=== PATIENT | female | born 1935 | race Caucasian/White ===

== ENCOUNTER 2016-06-17 08:49 | Emergency (ER) | payer OTHER ==
[~2016-06-17] VITALS: Ht 149.9 cm; Wt 70.3 kg
[2016-06-17] MEDS ORDERED: GABA-586 PO (09:19)
[2016-06-17] MEDS ORDERED: LAMO25TA5 PO (09:19)
[2016-06-17] MEDS ORDERED: METF500T4 PO (09:19)
[2016-06-17] MEDS ORDERED: ALBU2.5V14 NEB (09:19)
[2016-06-17] MEDS ORDERED: FENTANYL PF 100 MCG/2 ML VIAL. IV PRN (09:30)
[2016-06-17] MEDS ORDERED: BUPR150T15 PO (09:32)
[2016-06-17] MEDS ORDERED: AMLO5TAB2 PO (09:32)
[2016-06-17] MEDS ORDERED: POTA10TA10 PO (09:32)
[2016-06-17] MEDS ORDERED: LAMO200T3 PO (09:32)
[2016-06-17] MEDS ORDERED: LOSA50TA6 PO (09:34)
[2016-06-17] MEDS ORDERED: TIOT18CA IH (09:34)
[2016-06-17] MEDS ORDERED: FURO20TA3 PO (09:34)
--- NOTE | 2016-06-17 10:04 | PHYS DOC ---
Past Medical History Past Medical History: Asthma, Bipolar, COPD, Diabetes-Type II, High Cholesterol , Hypertension, TIA, Other Additional Past Medical Histor: neuropathy Past Surgical History: Appendectomy Alcohol Use: Rarely Drug Use: None Adult General Chief Complaint Chief Complaint: RIB PAIN HPI HPI Patient is a 80 year old female who presents with complaint of left-sided rib and back pain. Patient states that she had a maximum fall at home after tripping on a rug in her house. Patient states that she struck her back against the wall. Patient denies falling to the ground and did not experience any loss consciousness. Patient states that she has had worsening pain along her left side since the fall. Patient has been having sharp pain and tightness towards her back which worsens with movement and with deep inspiration. Patient has been using Voltaren and applying heat to the affected area with no relief. Patient rates her pain currently as 10 out of 10. Review of Systems Review of Systems Constitutional: Denies fever or chills [] Eyes: Denies change in visual acuity, redness, or eye pain [] HENT: Denies nasal congestion or sore throat [] Respiratory: Shortness of breath [] Cardiovascular: Denies chest pain or edema [] GI: Denies abdominal pain, nausea, vomiting, bloody stools or diarrhea [] : Denies dysuria or hematuria [] Musculoskeletal: Left-sided back pain [] Integument: Denies rash or skin lesions [] Neurologic: Denies headache, focal weakness or sensory changes [] Current Medications Current Medications Current Medications Medications (Trade) Dose Ordered Sig/[facility] Start Time Stop Time Status Last Admin Dose Admin Fentanyl Citrate (Fentanyl 2ml Vial) 50 mcg PRN Q15MIN PRN 06/17/16 09:30 06/18/16 09:29 06/17/16 10:34 50 MCG Allergies Allergies Allergies Coded Allergies Type Severity Reaction Last Updated Verified No Known Drug Allergies 06/17/16 No Physical Exam Physical Exam Constitutional: Alert, afebrile, appears in moderate discomfort. [] HENT: Normocephalic, atraumatic, bilateral external ears normal, oropharynx moist, no oral exudates, nose normal. [] Eyes: PERRLA, EOMI, conjunctiva normal, no discharge. [] Neck: Normal range of motion, no tenderness, supple, no stridor. [] Cardiovascular:Heart rate regular rhythm, no murmur [] Lungs & Thorax: Bilateral breath sounds clear to auscultation [] Abdomen: Bowel sounds normal, soft, no tenderness, no masses, no pulsatile masses. [] Skin: Warm, dry, no erythema, no rash. [] Back: Left mid and lower thoracic tenderness to palpation, no midline tenderness to palpation, no flank ecchymosis. [] Extremities: No tenderness, no cyanosis, no clubbing, ROM intact, no edema. [] Neurologic: Alert and oriented X 3, normal motor function, normal sensory function, no focal deficits noted. [] Current Patient Data Vital Signs Vital Signs Date Time Temp Pulse Resp B/P Pulse Ox O2 Delivery O2 Flow Rate FiO2 06/17/16 10:34 18 97 Room Air 06/17/16 08:57 98 85 160/98 98.0 Lab Values Laboratory Tests Test 06/17/16 10:30 White Blood Count 6.9x10^3/uL (4.0-11.0) Red Blood Count 4.25x10^6/uL (3.50-5.40) Hemoglobin 13.5g/dL (12.0-15.5) Hematocrit 40.2% (36.0-47.0) Mean Corpuscular Volume 94fL (79-100) Mean Corpuscular Hemoglobin 32pg (25-35) Mean Corpuscular Hemoglobin Concent 34g/dL (31-37) Red Cell Distribution Width 14.6% (11.5-14.5) H Platelet Count 230x10^3/uL (140-400) Neutrophils (%) (Auto) 62% (31-73) Lymphocytes (%) (Auto) 28% (24-48) Monocytes (%) (Auto) 9% (0-9) Eosinophils (%) (Auto) 1% (0-3) Basophils (%) (Auto) 1% (0-3) Neutrophils # (Auto) 4.3x10^3uL (1.8-7.7) Lymphocytes # (Auto) 1.9x10^3/uL (1.0-4.8) Monocytes # (Auto) 0.6x10^3/uL (0.0-1.1) Eosinophils # (Auto) 0.0x10^3/uL (0.0-0.7) Basophils # (Auto) 0.0x10^3/uL (0.0-0.2) Sodium Level 129mmol/L (136-145) L Potassium Level 4.5mmol/L (3.5-5.1) Chloride Level 98mmol/L (98-107) Carbon Dioxide Level 31mmol/L (21-32) Anion Gap 0 (6-14) L Blood Urea Nitrogen 7mg/dL (7-20) Creatinine 0.9mg/dL (0.6-1.0) Estimated GFR (Cockcroft-Gault) 60.4 Glucose Level 91mg/dL (70-99) Calcium Level 9.1mg/dL (8.5-10.1) Laboratory Tests 06/17/16 10:30 Laboratory Tests 06/17/16 10:30 EKG EKG Interpreted by me: Heart rate 92, sinus rhythm, right bundle branch block, no acute ST/T-wave abnormalities present [] Radiology/Procedures Radiology/Procedures [facility] [address] [place] [address] IMAGING REPORT Signed PATIENT: JOSÉ MIGUEL HUGO ACCOUNT: [id number] : 1935 LOCATION: ER AGE: 80 SEX: F EXAM STATUS: REG ER ORD. PHYSICIAN: TIMOTHY RECINOS MD REASON: fall 2 days ago, left-sided rib pain, PAINFUL BREATHING, MID-LOW RIBS PAIN PROCEDURE: RIBS LEFT AND PA CHEST INDICATION: fall 2 days ago, left-sided rib pain, PAINFUL BREATHING, MID-LOW RIBS PAIN COMPARISON: None. IMPRESSION: 4 views of chest and left ribs obtained. Mild linear opacity right lower lung. Likely atelectasis or scarring. No grossly displaced acute appearing left rib fracture. DICTATED and SIGNED BY: DHAVAL GARCIA MD DATE: 06/17/16 1007 CC: TIMOTHY RECINOS MD; SLAVA SIMMS MD ~ [] Course & Med Decision Making Course & Med Decision Making Pertinent Labs and Imaging studies reviewed. (See chart for details) Patient was given fentanyl in the emergency department with improvement in pain. The patient's x-rays were negative for rib fracture. The patient's symptoms appear consistent with back contusion and muscle strain. The patient will be continued on Flexeril at nighttime and hydrocodone during the daytime to help with symptoms. Advised follow-up with patient's primary physician in the next 3-4 days. Advised return to the emergency department for any worsening symptoms. Patient voiced understanding and in agreement with treatment plan. Dragon Disclaimer Dragon Disclaimer This electronic medical record was generated, in whole or in part, using a voice recognition dictation system. Departure Departure Impression: Primary Impression: Muscle strain Additional Impression: Back contusion Disposition: HOME, SELF-CARE Condition: IMPROVED Referrals: SLAVA SIMMS MD (PCP) Patient Instructions: Contusion, Muscle Strain Additional Instructions: Follow-up with your primary doctor in 3-4 days. Discontinue use of Tylenol #3 while you are taking [place]. Return to the emergency department for any worsening symptoms. Scripts Cyclobenzaprine Hcl 10 Mg Tablet1 Tab PO QHS PRN MUSCLE PAIN #10 TAB Prov:TIMOTHY RECINOS MD 06/17/16 Hydrocodone/Apap 5-325 ([place] 5-325 Tablet)1 Each Tablet1 Tab PO Q4-6HRS PRN PAIN #15 TAB Prov:TIMOTHY RECINOS MD 06/17/16 Problem Qualifiers Additional Impression: Back contusion Encounter type: initial encounter Laterality: left Qualified Code: S20.222A - Contusion of left back wall of thorax, initial encounter TIMOTHY RECINOS MD Jun 17, 2016 10:04
--- NOTE | 2016-06-17 10:12 | RAD ---
INDICATION: fall 2 days ago, left-sided rib pain, PAINFUL BREATHING, MID-LOW RIBS PAIN COMPARISON: None. IMPRESSION: 4 views of chest and left ribs obtained. Mild linear opacity right lower lung. Likely atelectasis or scarring. No grossly displaced acute appearing left rib fracture.
[2016-06-17 10:45] LABS: CALCIUM 9.1 mg/dL (8.5-10.1); CREATININE 0.9 mg/dL (0.6-1.0); GFR 60.4; POTASSIUM 4.5 mmol/L (3.5-5.1)
[2016-06-17 10:47] LABS: BASO % 1 % (0-3); EOS % 1 % (0-3); HEMATOCRIT 40.2 % (36.0-47.0); HEMOGLOBIN 13.5 g/dL (12.0-15.5); LYMPH # 1.9 x10^3/uL (1.0-4.8); LYMPH % 28 % (24-48); MEAN CORPUSCULAR HEMOGLOBIN 32 pg (25-35); MEAN CORPUSCULAR HGB CONC 34 g/dL (31-37); MEAN CORPUSCULAR VOLUME 94 fL (79-100); MONO % 9 % (0-9); NEUT % 62 % (31-73); PLATELET COUNT 230 x10^3/uL (140-400); RED BLOOD COUNT 4.25 x10^6/uL (3.50-5.40); RED CELL DISTRIBUTION WIDTH 14.6 % (11.5-14.5); WHITE BLOOD COUNT 6.9 x10^3/uL (4.0-11.0)
[2016-06-17 10:58] VITALS: BP 148/78
[2016-06-17] MEDS ORDERED: CYCL10TA2 PO (11:08)
[2016-06-17] MEDS ORDERED: HYDR-971 PO (11:08)
--- NOTE | 2016-06-17 14:42 | EKG ---
[facility] [address] [place] [address] Test Date: 2016-06-17 Test Time: 10:21:31 Pat Name: JOSÉ MIGUEL HUGO Department: Room: Gender: F Field Appraiser: : 1935 Requested By: TIMOTHY RECINOS Order Number: [id number] Reading MD: Measurements Intervals [place] Rate: 92 P: 36 [place]: 154 QRS: 26 QRSD: 132 T: 0 QT: 358 QTc: 448 Interpretive Statements SINUS RHYTHM LEFT ATRIAL ABNORMALITY RIGHT BUNDLE BRANCH BLOCK RVH WITH REPOLARIZATION ABNORMALITY QRS(T) CONTOUR ABNORMALITY CONSIDER ANTEROSEPTAL MYOCARDIAL DAMAGE CONSISTENT WITH INFERIOR INFARCT AGE UNDETERMINED ABNORMAL ECG RI6.01 No previous ECG available for comparison
== END 2016-06-17 11:20 | disposition home or self-care (01) ==
LOC: ER 08:49
DX: S20.222A Contusion of left back wall of thorax, initial encounter (principal); S30.0XXA Contusion of lower back and pelvis, initial encounter; R07.81 Pleurodynia; I10 Essential (primary) hypertension; E11.40 Type 2 diabetes mellitus with diabetic neuropathy, unspecified; F31.9 Bipolar disorder, unspecified; J44.0 Chronic obstructive pulmonary disease with (acute) lower respiratory infection; J45.909 Unspecified asthma, uncomplicated; Z86.73 Personal history of transient ischemic attack (TIA), and cerebral infarction without residual deficits; Z90.49 Acquired absence of other specified parts of digestive tract; W18.09XA Striking against other object with subsequent fall, initial encounter; Y93.89 Activity, other specified; Y99.8 Other external cause status; Y92.098 Other place in other non-institutional residence as the place of occurrence of the external cause
CPT/HCPCS: 36415; 71101; 80048; 85027; 93005; 96374; 99285; J3010

== ENCOUNTER → 2017-01-15 | Outpatient (CLI) | payer OTHER ==
[~2017-01-15] MED LIST: ALBU2.5V14 NEB; AMLO5TAB2 PO; BUPR150T15 PO; CYCL10TA2 PO; FURO20TA3 PO; GABA-586 PO; HYDR-971 PO; LAMO200T3 PO; LAMO25TA5 PO; LOSA50TA6 PO; METF500T4 PO; POTA10TA12 PO; TIOT18CA IH
--- NOTE | 2017-01-15 13:19 | RAD ---
DATE: 01/15/2017 EXAM: DIGITAL SCREEN BILAT W/CAD HISTORY: Routine screening COMPARISON: 12/04/2012 This study was interpreted with the benefit of Computerized Aided Detection (CAD). The breast parenchyma is primarily fatty replaced. Breast parenchyma level density A. FINDINGS: No new or enlarging breast densities are seen. Benign type calcifications are present. There are stable benign-appearing axillary lymph nodes bilaterally. IMPRESSION: Stable mammograms without evidence of malignancy. BI-RADS CATEGORY: 2 BENIGN FINDING(S) RECOMMENDED FOLLOW-UP: 12M 12 MONTH FOLLOW-UP PQRS compliance statement: Patient information was entered into a reminder system with a target due date for the next mammogram. Mammography is a sensitive method for finding small breast cancers, but it does not detect them all and is not a substitute for careful clinical examination. A negative mammogram does not negate a clinically suspicious finding and should not result in delay in biopsying a clinically suspicious abnormality. "Our facility is accredited by the [employer] Mammography Program."
== END | disposition home or self-care (01) ==
LOC: MAMMO 12:47
PROVIDERS: ATTEND Family Medicine
DX: Z12.31 Encounter for screening mammogram for malignant neoplasm of breast (principal)
CPT/HCPCS: G0202; 77067